=== PATIENT | female | born 1995 | race African-American/Black ===

== ENCOUNTER 2017-05-15 10:42 | Emergency (ER) | payer OTHER ==
[~2017-05-15] VITALS: Ht 162.6 cm; Wt 75.0 kg
[2017-05-15 13:07] LABS: BASOPHILS % 0.9 % (0.0-2.0); EOSINOPHILS % 3.9 % (0.0-5.0); HEMATOCRIT. 34.8 % (36.0-48.0); HEMOGLOBIN. 11.4 g/dL (12.0-16.0); LYMPHOCYTES % 22.3 % (20.0-50.0); MEAN CORPUSCULAR HEMOGLOBIN 26.6 pg (28.0-32.0); MEAN CORPUSCULAR VOLUME 81.2 fL (81.0-99.0); MEAN PLATELET VOLUME 8.3 fl (7.4-10.4); MONOCYTES % 8.1 % (2.0-8.0); NEUTROPHILS % 64.8 % (40.0-76.0); PLATELET 304 x1000/uL (130-400); RED BLOOD CELL COUNT 4.28 mill/uL (4.2-5.4); RED CELL DISTRIBUTION WIDTH 17.2 % (11.6-14.6)
[2017-05-15 13:12] LABS: CHLORIDE 107 mEq/L (98-107)
[2017-05-15 13:24] LABS: B-HCG QUANTITATIVE 528 mIU/mL (<3)
[2017-05-15] MEDS ORDERED: SODIUM CHLORIDE 0.9% 1,000 ML IV ONE (15:48)
[2017-05-15 16:03] LABS: CLARITY URINE CLOUDY (CLEAR); COLOR URINE RED (YELLOW); KETONES URINE NEGATIVE (NEGATIVE); LEUKOCYTE ESTERASE URINE 2+ (NEGATIVE); NITRITE URINE NEGATIVE (NEGATIVE); OCCULT BLOOD URINE 3+ (NEGATIVE); PROTEIN URINE 3+ (NEGATIVE); SPECIFIC GRAVITY URINE 1.022 (1.005-1.030); UROBILINOGEN URINE 0.2 E.U./dL (0.2-1.0)
[2017-05-15] MEDS ORDERED: ACETAMINOPHEN 325MG TABLET PO ONE (17:15)
[2017-05-15 19:00] VITALS: BP 110/75
== END 2017-05-15 19:28 | disposition home or self-care (01) ==
LOC: ER 10:55
DX: O03.38 Urinary tract infection following incomplete spontaneous abortion (principal); Z3A.12 12 weeks gestation of pregnancy
CPT/HCPCS: 36415; 76801; 76817; 80053; 81003; 81025; 84702; 85025; 86850; 86900; 86901; 96360; 96361; 99285; J7030

== ENCOUNTER 2017-09-06 07:18 | Emergency (ER) | payer OTHER, MEDICAID ==
[~2017-09-06] VITALS: Ht 162.6 cm; Wt 75.0 kg
[2017-09-06] MEDS ORDERED: IBUPROFEN 600MG TABLET PO ONE (08:30)
[2017-09-06 08:34] LABS: BASOPHILS % 0.7 % (0.0-2.0); EOSINOPHILS % 5.9 % (0.0-5.0); HEMATOCRIT. 31.4 % (36.0-48.0); HEMOGLOBIN. 10.2 g/dL (12.0-16.0); LYMPHOCYTES % 26.2 % (20.0-50.0); MEAN CORPUSCULAR HEMOGLOBIN 25.7 pg (28.0-32.0); MEAN CORPUSCULAR VOLUME 79.1 fL (81.0-99.0); MEAN PLATELET VOLUME 7.8 fl (7.4-10.4); MONOCYTES % 8.6 % (2.0-8.0); NEUTROPHILS % 58.6 % (40.0-76.0); PLATELET 308 x1000/uL (130-400); RED BLOOD CELL COUNT 3.97 mill/uL (4.2-5.4)
[2017-09-06 08:40] LABS: CHLORIDE 106 mEq/L (98-107)
[2017-09-06 08:41] LABS: INR 1.1; PROTHROMBIN TIME 11.6 sec (9.4-11.6)
[2017-09-06 10:00] VITALS: BP 123/60
== END 2017-09-06 10:41 | disposition home or self-care (01) ==
LOC: ER 08:01
DX: R07.9 Chest pain, unspecified (principal); D64.9 Anemia, unspecified
CPT/HCPCS: 36415; 71045; 80053; 81025; 85025; 85610; 93005; 99285

== ENCOUNTER 2018-05-09 14:57 | Emergency (ER) | payer MEDICAID, OTHER ==
[~2018-05-09] VITALS: Ht 162.6 cm; Wt 74.0 kg
[2018-05-09] MEDS ORDERED: KETOROLAC 60MG/2ML VIAL IM ONE (16:15)
[2018-05-09 18:05] VITALS: BP 125/75
== END 2018-05-09 18:06 | disposition home or self-care (01) ==
LOC: ER 14:57
DX: R07.9 Chest pain, unspecified (principal); F17.200 Nicotine dependence, unspecified, uncomplicated
CPT/HCPCS: 71045; 81025; 93005; 96372; 99283; J1885; Z7610

== ENCOUNTER 2018-05-10 05:41 | Emergency (ER) | payer MEDICAID, OTHER ==
[~2018-05-10] VITALS: Ht 165.1 cm; Wt 79.0 kg
[2018-05-10] MEDS ORDERED: SODIUM CHLORIDE 0.9% 1,000 ML IV ONE (06:46)
[2018-05-10] MEDS ORDERED: KETOROLAC 30MG/ML VIAL IV STA (06:46)
[2018-05-10 07:14] LABS: EOSINOPHILS % 7.8 % (0.0-5.0); HEMATOCRIT. 30.7 % (36.0-48.0); HEMOGLOBIN. 9.7 g/dL (12.0-16.0); LYMPHOCYTES % 27.3 % (20.0-50.0); MEAN CORPUSCULAR VOLUME 78.8 fL (81.0-99.0); MEAN PLATELET VOLUME 8.2 fl (7.4-10.4); MONOCYTES % 7.5 % (2.0-8.0); NEUTROPHILS % 56.4 % (40.0-76.0); PLATELET 285 x1000/uL (130-400); RED CELL DISTRIBUTION WIDTH 17.1 % (11.6-14.6)
[2018-05-10 07:20] LABS: CHLORIDE 109 mEq/L (98-107)
[2018-05-10 08:48] LABS: CLARITY URINE CLEAR (CLEAR); COLOR URINE YELLOW (YELLOW); KETONES URINE NEGATIVE (NEGATIVE); LEUKOCYTE ESTERASE URINE NEGATIVE (NEGATIVE); NITRITE URINE NEGATIVE (NEGATIVE); OCCULT BLOOD URINE NEGATIVE (NEGATIVE); PROTEIN URINE NEGATIVE (NEGATIVE); SPECIFIC GRAVITY URINE 1.017 (1.005-1.030); UROBILINOGEN URINE 0.2 E.U./dL (0.2-1.0)
[2018-05-10 09:05] VITALS: BP 115/82
== END 2018-05-10 09:22 | disposition home or self-care (01) ==
LOC: ER 05:41
DX: R07.89 Other chest pain (principal); F17.200 Nicotine dependence, unspecified, uncomplicated
CPT/HCPCS: 36415; 71045; 80053; 81003; 81025; 85025; 93005; 96374; 99284; J1885; J7030; Z7610

== ENCOUNTER 2018-06-04 11:27 | Emergency (ER) | payer OTHER ==
[~2018-06-04] VITALS: Ht 175.3 cm; Wt 81.0 kg
[2018-06-04] MEDS ORDERED: ACETAMINOPHEN 325MG TABLET PO STA (15:34)
[2018-06-04 15:43] VITALS: BP 121/91
[2018-06-04] MEDS ORDERED: ASPIRIN 81MG TABLET PO ONE (15:45)
[2018-06-04 15:53] LABS: BASOPHILS % 0.7 % (0.0-2.0); EOSINOPHILS % 7.1 % (0.0-5.0); HEMATOCRIT. 31.4 % (36.0-48.0); HEMOGLOBIN. 10.2 g/dL (12.0-16.0); LYMPHOCYTES % 31.6 % (20.0-50.0); MEAN CORPUSCULAR HEMOGLOBIN 25.6 pg (28.0-32.0); MEAN CORPUSCULAR VOLUME 79.1 fL (81.0-99.0); MEAN PLATELET VOLUME 8.4 fl (7.4-10.4); MONOCYTES % 8.8 % (2.0-8.0); NEUTROPHILS % 51.8 % (40.0-76.0); PLATELET 317 x1000/uL (130-400); RED BLOOD CELL COUNT 3.97 mill/uL (4.2-5.4); RED CELL DISTRIBUTION WIDTH 17.3 % (11.6-14.6)
[2018-06-04 15:56] LABS: CHLORIDE 108 mEq/L (98-107)
[2018-06-04 16:00] LABS: D-DIMER 0.24 mg/L FEU (<0.50); PROTHROMBIN TIME 10.6 sec (9.6-11.0)
== END 2018-06-04 17:15 | disposition home or self-care (01) ==
LOC: ER 11:27
DX: R07.89 Other chest pain (principal); R06.00 Dyspnea, unspecified; F17.210 Nicotine dependence, cigarettes, uncomplicated; F12.10 Cannabis abuse, uncomplicated
CPT/HCPCS: 36415; 71045; 80053; 81025; 83880; 84484; 85025; 85379; 85610; 93005; 99284; Z7610

== ENCOUNTER 2018-07-19 23:33 | Emergency (ER) | payer OTHER ==
[~2018-07-19] VITALS: Ht 162.6 cm; Wt 81.0 kg
[2018-07-20] MEDS ORDERED: KETOROLAC 60MG/2ML VIAL IM ONE (01:45)
[2018-07-20 03:52] VITALS: BP 129/85
== END 2018-07-20 03:53 | disposition home or self-care (01) ==
LOC: ER 23:33
DX: R07.89 Other chest pain (principal); R06.02 Shortness of breath; R05 Cough; F12.10 Cannabis abuse, uncomplicated
CPT/HCPCS: 71045; 81025; 93005; 96372; 99283; J1885

== ENCOUNTER 2019-03-31 21:09 | Emergency (ER) | payer MEDICAID, OTHER ==
[~2019-03-31] VITALS: Ht 162.6 cm; Wt 85.0 kg
[2019-03-31] MEDS ORDERED: IBUPROFEN 600MG TABLET PO STA (22:35)
[2019-04-01 00:12] VITALS: BP 147/105
== END 2019-04-01 00:17 | disposition home or self-care (01) ==
LOC: ER 21:09
DX: S93.492A Sprain of other ligament of left ankle, initial encounter (principal); F12.10 Cannabis abuse, uncomplicated; X58.XXXA Exposure to other specified factors, initial encounter; Y93.B9 Activity, other involving muscle strengthening exercises; Y92.018 Other place in single-family (private) house as the place of occurrence of the external cause
CPT/HCPCS: 73610; 99283